=== PATIENT | female | born 1980 | race Caucasian/White ===

== ENCOUNTER 2017-09-16 17:02 | Emergency (ER) | payer MEDICARE, OTHER ==
[~2017-09-16] VITALS: Ht 154.9 cm; Wt 66.0 kg
[~2017-09-16 17:02] MED LIST: A/B OTIC OT; AMOXICILLIN500 MG PO; AMOXICILLIN875 MG OR; CIPRO500 MG PO; CORTISPORIN OTI10 ML AS; DIFLUCAN150 MG OR; FLAGYL500 MG OR; FLEXERIL PO; LISINOPRIL10 MG PO; NAPROSYN500 MG PO; ORTHO TRI-CYCLEN LO PO; PREVIFE2 PO; TRI-SPRINTEC PO; ULTRAM50 MG PO; [UNRECOGNIZED DRUG - OTHER] PO
[2017-09-16] MEDS ORDERED: LEXAPRO10 MG PO (17:15)
[2017-09-16] MEDS ORDERED: VITAMIN D31000 UNI1 PO (17:16)
[2017-09-16] MEDS ORDERED: METO25TAB PO (17:16)
[2017-09-16] MEDS ORDERED: TRICOR145 MG PO (17:16)
[2017-09-16] MEDS ORDERED: NAPROSYN500 MG PO (17:17)
[2017-09-16 17:25] VITALS: BP 135/77
[2017-09-16] MEDS ORDERED: PENICILLN VK500 MG PO (17:47)
[2017-09-16] MEDS ORDERED: IBUPROFEN600 MG PO (17:47)
== END 2017-09-16 17:59 | disposition home or self-care (01) ==
LOC: ED 17:02
DX: K04.7 Periapical abscess without sinus (principal); K08.89 Other specified disorders of teeth and supporting structures

== ENCOUNTER 2021-02-26 20:37 | Emergency (ER) | payer MEDICARE, OTHER ==
[~2021-02-26] VITALS: Ht 154.9 cm; Wt 73.0 kg
[~2021-02-26 20:37] MED LIST changes: +IBUPROFEN600 MG PO; +LEXAPRO10 MG PO; +METO25TAB PO; +PENICILLN VK500 MG PO; +TRICOR145 MG PO; +VITAMIN D31000 UNI1 PO
[2021-02-26 21:36] LABS: URINE BILIRUBIN - DIPSTICK NEGATIVE (NEGATIVE); URINE BLOOD DIPSTICK NEGATIVE (NEGATIVE); URINE COLOR YELLOW; URINE GLUCOSE - DIPSTICK NEGATIVE (NEGATIVE); URINE KETONE NEGATIVE (NEGATIVE); URINE LEUK ESTERASE NEGATIVE (NEGATIVE); URINE PROTEIN - DIPSTICK NEGATIVE (NEG-TRACE); URINE SPECIFIC GRAVITY 1.025; URINE UROBILINOGEN - DIPSTICK 0.2 E.U./dL (0.2)
[2021-02-26 21:41] LABS: URINE NITRITE - DIPSTICK NEGATIVE (Negative)
[2021-02-26 21:46] LABS: HEMATOCRIT 41.3 % (37.0-47.0); HEMOGLOBIN 13.2 g/dl (12.0-16.0); IMMATURE GRANULOCYTES 0.3 % (0.0-5.0); MEAN CELL VOLUME 86.9 fL CALC (80.0-100.0); MEAN CORPUSCULAR HGB 27.8 pG CALC (26.0-32.0); RED BLOOD COUNT 4.75 mill/uL (4.20-5.60); RED CELL DISTRI WIDTH 13.7 % (11.5-15.5)
[2021-02-26 22:03] LABS: ALBUMIN 4.8 g/dL (3.2-5.0); ALKALINE PHOSPHATASE 102 u/l (38-126); ANION GAP 20 (6-22 (CALC)); BILIRUBIN, TOTAL 0.4 mg/dL (0.0-1.4); BUN 18 mg/dL (7-17); BUN/CREATININE RATIO 23 (12-20 (CALC)); CARBON DIOXIDE 23 mmol/l (22-30); CHLORIDE 103 mmol/l (95-108); CREATININE 0.8 mg/dL (0.5-1.0); GFR > 60 ML/MIN (>=60 (CALC)); GFR FOR AFR.AMER. > 60 ML/MIN (>=60 (CALC)); POTASSIUM 4.7 mmol/l (3.5-5.1); SGOT/AST 40 u/l (14-36); SODIUM 141 mmol/l (137-146); TOTAL PROTEIN 8.8 g/dL (6.3-8.2)
[2021-02-26 22:15] LABS: MYOGLOBIN 22 ng/mL (0 - 62)
[2021-02-27 01:37] VITALS: BP 134/94
[2021-02-27] MEDS ORDERED: ZOLOFT50 MG PO (01:41)
[2021-02-27] MEDS ORDERED: LABETALOL HYDR100 MG PO (01:41)
== END 2021-02-27 01:40 | disposition home or self-care (01) ==
LOC: ED 20:37
PROVIDERS: Emergency Medicine
DX: E86.0 Dehydration (principal); I10 Essential (primary) hypertension

== ENCOUNTER 2023-11-09 10:47 | Emergency (ER) | payer MEDICARE, OTHER ==
[2023-11-09] VITALS (16 sets, daily range): BP systolic 101–121; BP diastolic 62–83
[~2023-11-09] VITALS: Ht 154.9 cm; Wt 79.3 kg
[~2023-11-09 10:47] MED LIST changes: +LABETALOL HYDR100 MG PO; +ZOLOFT50 MG PO
[2023-11-09 11:32] LABS: URINE BILIRUBIN - DIPSTICK Negative (NEGATIVE); URINE BLOOD DIPSTICK Negative (NEGATIVE); URINE GLUCOSE - DIPSTICK Negative (NEGATIVE); URINE KETONE Negative (NEGATIVE); URINE LEUK ESTERASE Negative (NEGATIVE); URINE NITRITE - DIPSTICK Negative (Negative); URINE PROTEIN - DIPSTICK Negative (NEG-TRACE); URINE UROBILINOGEN - DIPSTICK 0.2 E.U./dL (0.2)
[2023-11-09 11:33] LABS: URINE COLOR Yellow
[2023-11-09 11:36] LABS: BASO% 0.2 % (0-3); EOS% 0.8 % (0-8); HEMATOCRIT 38.6 % (37.0-47.0); HEMOGLOBIN 12.3 g/dl (12.0-16.0); IMMATURE GRANULOCYTES 0.2 % (0.0-5.0); LYMPH% 17.7 % (15-41); MEAN CELL VOLUME 87.5 fL CALC (80.0-100.0); MEAN CORPUSCULAR HGB 27.9 pG CALC (26.0-32.0); MEAN CORPUSCULAR HGB CONC 31.9 g/dL CAL (32.0-36.0); MONO% 5.7 % (2-13); NEUT# 9.27 thou/uL (2.00-7.15); NEUT% 75.4 % (42-76); RED BLOOD COUNT 4.41 mill/uL (4.20-5.60); RED CELL DISTRI WIDTH 13.1 % (11.5-15.5)
[2023-11-09 11:48] LABS: ALBUMIN 4.8 g/dL (3.2-5.0); BILIRUBIN, TOTAL 0.5 mg/dL (0.02-1.3); CREATININE 0.9 mg/dL (0.5-1.0); POTASSIUM 3.8 mmol/l (3.5-5.1); TOTAL PROTEIN 8.3 g/dL (6.3-8.2)
[2023-11-09] MEDS ORDERED: ONDANSETRON HCl 4 MG/2 ML SDV IV ONE (16:15)
[2023-11-09] MEDS ORDERED: MORPHINE SULFATE 4 MG/ML VIAL IV ONE (16:15)
== END 2023-11-09 16:29 | disposition home or self-care (01) ==
LOC: ED 10:47
PROVIDERS: Family Medicine
DX: N83.202 Unspecified ovarian cyst, left side (principal); I10 Essential (primary) hypertension; E78.5 Hyperlipidemia, unspecified
CPT/HCPCS: Q9967

== ENCOUNTER 2024-01-13 12:07 | Emergency (ER) | payer MEDICARE, OTHER ==
[~2024-01-13] VITALS: Ht 154.9 cm; Wt 66.0 kg
[2024-01-13] MEDS ORDERED: CARBAMIDE PEROXIDE 6.5 % BTL AS ONE (14:00)
[2024-01-13] MEDS ORDERED: AMOXICILLIN875 MG PO (14:09)
[2024-01-13 14:24] VITALS: BP 113/72
== END 2024-01-13 14:27 | disposition home or self-care (01) ==
LOC: ED 12:07
DX: J02.9 Acute pharyngitis, unspecified (principal); I10 Essential (primary) hypertension; Z20.822 Contact with and (suspected) exposure to COVID-19